=== PATIENT | female | born 1945 | race Caucasian/White ===

== ENCOUNTER → 2016-11-04 | Outpatient (CLI) | payer OTHER | LOC: FIMAGING 08:35 | PROVIDERS: ATTEND Internal Medicine Pulmonary Disease | DX: R13.10 Dysphagia, unspecified (principal); R05 Cough ==

== ENCOUNTER 2017-07-21 21:22 | Emergency (ER) | payer OTHER ==
[2017-07-21 21:38] VITALS: TEMP 99.3
--- NOTE | 2017-07-21 21:40 | EDPHY ---
HPI/HX/ROS/PE/MDM Narrative: CHIEF COMPLAINT: "I think my shingles are back" HPI: The patient is a 71 y/o female complaining of worsening left-sided back pain over the last few days that feels similar to prior shingles episodes. She has had 3 prior shingles outbreaks and describes her pain as sharp and worse with movement, particularly sitting up or twisting her back. The pain is in the same location as a prior outbreak. She has not noticed a rash yet. She denies weakness or numbness in her legs, radiation of pain down her legs, urinary symptoms, nausea, vomiting, abdominal pain. REVIEW OF SYSTEMS: Aside from elements discussed in the HPI, a comprehensive 10-point review of systems was reviewed and is negative. PMH: Shingles x3, back pain, rheumatoid and osteoarthritis - OxyContin 10mg TID and marijuana SOCIAL HISTORY: at bedside. Lives in [place]. Retired. PHYSICAL EXAM: General:Patient is alert, in no acute distress. ENT:Eyes are normal to inspection. ENT inspection normal. Neck: Normal inspection. Full range of motion. Respiratory:No respiratory distress. Breath sounds normal bilaterally. Cardiovascular: Regular rate and rhythm. Strong peripheral pulses. Normal cap refill. Abdomen:The abdomen is nontender to palpation. There are no peritoneal signs. Back: Normal to inspection. No tenderness to palpation. No rash. Skin: Normal color. No rash. Warm and dry. Extremities: Normal appearance. Full range of motion. Neuro: Oriented x3. Normal motor function. Normal sensory function. ED Course: This is a 71 y/o female with a history of recurrent shingles infections and chronic back pain who presents with lower left-sided back pain that feels exactly the same as prior shingles outbreaks despite having no rash. Pain is worse with movement and could represent musculoskeletal etiology as well. She has a normal neurologic exam. Patient declines testing for other causes of her back pain tonight and would prefer treatment for possible shingles outbreak instead. 60mg IM Toradol administered here for pain and first dose of 1000mg PO Valacyclovir given. She will be discharged with script for Valacyclovir and standard care and follow up instructions. Return precautions discussed. She is comfortable with this plan. MDM: This patient presents with two days of left flank pain which she describes as exactly similar to prior episodes of shingles prior to developing a rash. She clearly does not have evidence of a rash or skin sensitivity over this area, and complains of significant pain with movement. I explained to the patient that I doubt this is shingles, and am concerned this may represent a spinal process, kidney stone or infection or other abdominal process, particularly given her tachycardia. I advised urinalysis at minimum as well as advanced imaging to ensure there was nothing else going on but she declines. She states she is totally sure this is shingles as she has had it several times before. She understands that I cannot rule out additional disease without testing and that she may suffer addition complication secondary to delay in diagnosis. I have agreed to provide her with an rx for valcyclovir and she is already on oxycontin at home for chronic pain. I encouraged her to return to the ED if symptoms worsen or particularly if a rash does not develop. - Data Points Medications Given: Discontinued Medications Ketorolac Tromethamine (Toradol) 60 mg IM EDNOW ONE Stop: 07/21/17 21:55 Last Admin: 07/21/17 22:19 Dose: 60 mg Valacyclovir HCl (Valtrex) 1,000 mg PO EDNOW ONE Stop: 07/21/17 21:48 Last Admin: 07/21/17 22:17 Dose: 1,000 mg General Time Seen by Provider: 07/21/17 21:23 Initial Vital Signs: Initial Vital Signs Temperature (C) 37.4 C 07/21/17 21:26 Heart Rate 112 H 07/21/17 21:26 Respiratory Rate 17 07/21/17 21:26 Blood Pressure 143/96 H 07/21/17 21:26 O2 Sat (%) 90 L 07/21/17 21:26 O2 Delivery Mode Room Air Allergies/Adverse Reactions: methotrexate Allergy (Verified 07/24/15 23:04) Home Medications: Medication Instructions Recorded Synthroid 50 mcg (RX) 50 mcg PO DAILY 10/07/14 Domperidone 10 mg PO BID@1130,1730 09/14/15 Estradiol 0.5 mg VG HS 09/14/15 Hydrochlorothiazide [HCTZ (*)] 12.5 mg PO DAILY 09/14/15 Lubiprostone [Amitiza 24 mcg (*)] 24 mcg PO DAILY 09/14/15 Omeprazole [Prilosec] 40 mg PO BID 09/14/15 Pramipexole Di-HCl [Mirapex] 0.5 mg PO DAILY18 09/14/15 Progesterone,Micronized 100 mg PO HS 09/14/15 [Prometrium] celeCOXIB [Celebrex (*)] 200 mg PO DAILY 09/14/15 oxyCODONE IR [Oxycodone Ir (*)] 5 - 10 mg PO Q3 PRN #0 tab 09/18/15 Valacyclovir HCl [Valtrex] 1,000 mg PO TID #21 tab 07/21/17 Departure - Departure Disposition: Home, Routine, Self-Care Clinical Impression: Back pain Qualifiers: Back pain location: low back pain Chronicity: acute Back pain laterality: left Sciatica presence: without sciatica Qualified Code(s): M54.5 - Low back pain Shingles Qualifiers: Herpes zoster complications: without complications Qualified Code(s): B02.9 - Zoster without complications Condition: Good Instructions: Valacyclovir (By mouth), Shingles (ED), Back Pain (ED) Additional Instructions: 1. Take Valacyclovir as prescribed in case of Shingles. 2. Continue home medications as directed. 3. Follow up with your primary care provider for unimproved symptoms and if you do not develop a rash over the next few days. 4. Return to the ED for severe pain, abdominal pain, blood in your urine, vomiting, or other worsening of condition. Referrals: Savannah Jerome MD [Primary Care Provider] - As per Instructions Prescriptions: Valacyclovir HCl [Valtrex] 1,000 mg PO TID #21 tab Report Scribed for: Sedrick Munoz Report Scribed by: Liberty Coleman Date of Report: 07/21/17 Time of Report: 21:35 Physician Review and Approval Statement: Portions of this note were transcribed by an ED scribe. I personally performed the history, physical exam, and medical decision making; and confirm the accuracy of the information in the transcribed note.
[2017-07-21] MEDS ORDERED: valACYclovir 500 MG TAB PO ONE (21:47)
[2017-07-21] MEDS ORDERED: KETOROLAC 30 MG/1 ML SDV IM ONE (21:54)
[2017-07-21 22:33] VITALS: BP 113/86; PULSE 115; RESP 16; O2SAT 92
== END 2017-07-21 22:32 | disposition home or self-care (01) ==
DX: M54.5 Low back pain (principal); B02.9 Zoster without complications
CPT/HCPCS: J1885